=== PATIENT | male | born 1925 | race Caucasian/White ===

== ENCOUNTER 2016-10-05 09:00 | Emergency (ER) | payer MEDICARE ==
[~2016-10-05] VITALS: Ht 172.7 cm; Wt 63.5 kg
[~2016-10-05 09:00] MED LIST: ASPI-482 PO; ASPI81TA2 PO; ATOR20TA58 PO; DABI150C PO; FLUD0.1T PO; FURO-69 PO; HYDR-2666 PO; METO100T2 PO; METO25TA2 PO; MULT-658 PO; NABU750T PO; NYST1000 PO; OXYC-323 PO; POLY17PO5 PO; SIMV40TA PO; dramamine
--- NOTE | 2016-10-05 09:37 | PHYS DOC ---
Past Medical History Past Medical History: CAD, CHF, CVA, Hypertension, Pneumonia, Other Additional Past Medical Histor: CHRONIC PNEUMONIA,DYSPHAGIA Past Surgical History: Coronary Bypass Surgery, Pacemaker, Tonsillectomy, Other Additional Past Surgical Histo: heart valve transplant, cataract, karo knees Alcohol Use: Rarely Drug Use: None Adult General Chief Complaint Chief Complaint: COUGH HPI HPI Patient is a 89 year old male presents emergency department from a nursing facility. Patient was sent over in regards to the cough that he's been having. Patient denies any fever, denies productive cough. He denies any shortness of air. Family member at bedside states that they are unsure why he was sent over here they had not received a call. She appears to be in no distress. Review of Systems Review of Systems Constitutional: Denies fever or chills [] Eyes: Denies change in visual acuity, redness, or eye pain [] HENT: Denies nasal congestion or sore throat [] Respiratory: cough denies shortness of breath [] Cardiovascular: No additional information not addressed in HPI [] GI: Denies abdominal pain, nausea, vomiting, bloody stools or diarrhea [] : Denies dysuria or hematuria [] Musculoskeletal: Denies back pain or joint pain [] Integument: Denies rash or skin lesions [] Neurologic: Denies headache, focal weakness or sensory changes [] Allergies Allergies Allergies Coded Allergies Type Severity Reaction Last Updated Verified No Known Allergies Allergy Unknown 08/26/16 No Physical Exam Physical Exam Constitutional: Well developed, well nourished, no acute distress, non-toxic appearance. [] HENT: Normocephalic, atraumatic, bilateral external ears normal, oropharynx moist, no oral exudates, nose normal. [] Eyes: PERRLA, EOMI, conjunctiva normal, no discharge. [] Neck: Normal range of motion, no tenderness, supple, no stridor. [] Cardiovascular:Heart rate regular rhythm, no murmur [] Lungs & Thorax: Bilateral breath sounds clear to auscultation [] Skin: Warm, dry, no erythema, no rash. [] Back: No tenderness Extremities: No tenderness, no cyanosis, no clubbing, ROM intact, no edema. [] Neurologic: Alert and oriented X 3, normal motor function, normal sensory function, no focal deficits noted. [] Psychologic: Affect normal, judgement normal, mood normal. [] Current Patient Data Vital Signs Vital Signs Date Time Temp Pulse Resp B/P Pulse Ox O2 Delivery O2 Flow Rate FiO2 10/05/16 09:00 98.5 60 22 119/69 22 Room Air 98.5 Lab Values Laboratory Tests Test 10/05/16 09:27 10/05/16 09:42 Sodium Level 142mmol/L (136-145) Potassium Level 4.8mmol/L (3.5-5.1) Chloride Level 104mmol/L (98-107) Carbon Dioxide Level 29mmol/L (21-32) Anion Gap 9 (6-14) Blood Urea Nitrogen 16mg/dL (8-26) Creatinine 0.9mg/dL (0.7-1.3) Estimated GFR (Cockcroft-Gault) 79.5 BUN/Creatinine Ratio 18 (6-20) Glucose Level 99mg/dL (70-99) Calcium Level 9.3mg/dL (8.5-10.1) Total Bilirubin 0.5mg/dL (0.2-1.0) Aspartate Amino Transferase (AST) 27U/L (15-37) Alanine Aminotransferase (ALT) 27U/L (16-63) Alkaline Phosphatase 127U/L (46-116) H Total Protein 6.7g/dL (6.4-8.2) Albumin 3.5g/dL (3.4-5.0) Albumin/Globulin Ratio 1.1 (1.0-1.7) White Blood Count 6.2x10^3/uL (4.0-11.0) Red Blood Count 4.03x10^6/uL (4.30-5.70) L Hemoglobin 12.2g/dL (13.0-17.5) L Hematocrit 36.8% (39.0-53.0) L Mean Corpuscular Volume 91fL (79-100) Mean Corpuscular Hemoglobin 30pg (25-35) Mean Corpuscular Hemoglobin Concent 33g/dL (31-37) Red Cell Distribution Width 15.6% (11.5-14.5) H Platelet Count 211x10^3/uL (140-400) Neutrophils (%) (Auto) 72% (31-73) Lymphocytes (%) (Auto) 13% (24-48) L Monocytes (%) (Auto) 9% (0-9) Eosinophils (%) (Auto) 5% (0-3) H Basophils (%) (Auto) 1% (0-3) Neutrophils # (Auto) 4.5x10^3uL (1.8-7.7) Lymphocytes # (Auto) 0.8x10^3/uL (1.0-4.8) L Monocytes # (Auto) 0.6x10^3/uL (0.0-1.1) Eosinophils # (Auto) 0.3x10^3/uL (0.0-0.7) Basophils # (Auto) 0.1x10^3/uL (0.0-0.2) Laboratory Tests 10/05/16 09:42 Laboratory Tests 10/05/16 09:27 EKG EKG [] Radiology/Procedures Radiology/Procedures [][facility] [address] [place] [address] IMAGING REPORT Signed PATIENT: KEDAR VASQUEZ ACCOUNT: [id number] : 1925 LOCATION: ER AGE: 89 SEX: M EXAM STATUS: PRE ER ORD. PHYSICIAN: BECKY REEVES NP REASON: cough congestion PROCEDURE: PORTABLE CHEST 1V Indication cough. A single view of the chest was obtained. Comparison is made to an examination 15 days earlier. Some linear atelectasis is seen in the left mid and lower lung similar to the previous exam. There are probable chronic background changes of fibrosis. A definite consolidated pneumonia is not seen. A significant change relative to the prior study is not apparent. There is no pleural fluid or pneumothorax. Postoperative changes are noted. Somewhat tortuous thoracic aorta is noted. There are degenerative changes about the left shoulder. Postoperative changes in the left humerus are noted. IMPRESSION: Linear atelectasis in the left lung similar to the previous exam. 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 No consolidated pneumonia is seen. No significant change DICTATED and SIGNED BY: NICOLE ARIZMENDI MD DATE: 10/05/16 [id number] CC: BECKY REEVES MICA INSPECTOR; MICHEAL LUCAS MD ~ Course & Med Decision Making Course & Med Decision Making Pertinent Labs and Imaging studies reviewed. (See chart for details) Chest x-ray had no changes from previous x-rays. CBC and chemistries with no abnormalities noted. Provided results to patient and family. Patient will be discharged back to the nursing facility. Spoke with Dr. Lucas in regards to chest x-ray and lab results. Patient does have a cough although it is nonproductive. O2 sats are within normal limits. No respiratory distress noted. Signs symptoms to return back to emergency department as been provided. [] Dragon Disclaimer Dragon Disclaimer This electronic medical record was generated, in whole or in part, using a voice recognition dictation system. Departure Departure Impression: Primary Impression: URI (upper respiratory infection) Disposition: HOME, SELF-CARE Condition: STABLE Referrals: MICHEAL LUCAS MD (PCP) Patient Instructions: Upper Respiratory Infection, Adult, [id number] Additional Instructions: Activity as tolerated. Continue your medications as prescribed. Follow-up to primary care physician within the next 2-3 days. Return back to emergency prior signs symptoms of become worse. BECKY REEVES NP Oct 05, 2016 09:37
[2016-10-05 09:57] LABS: CALCIUM 9.3 mg/dL (8.5-10.1); CREATININE 0.9 mg/dL (0.7-1.3); GFR 79.5; POTASSIUM 4.8 mmol/L (3.5-5.1)
[2016-10-05 10:01] LABS: BASO # 0.1 x10^3/uL (0.0-0.2); BASO % 1 % (0-3); EOS % 5 % (0-3); HEMATOCRIT 36.8 % (39.0-53.0); HEMOGLOBIN 12.2 g/dL (13.0-17.5); LYMPH # 0.8 x10^3/uL (1.0-4.8); LYMPH % 13 % (24-48); MEAN CORPUSCULAR HEMOGLOBIN 30 pg (25-35); MEAN CORPUSCULAR HGB CONC 33 g/dL (31-37); MEAN CORPUSCULAR VOLUME 91 fL (79-100); MONO % 9 % (0-9); NEUT % 72 % (31-73); PLATELET COUNT 211 x10^3/uL (140-400); RED BLOOD COUNT 4.03 x10^6/uL (4.30-5.70); RED CELL DISTRIBUTION WIDTH 15.6 % (11.5-14.5); WHITE BLOOD COUNT 6.2 x10^3/uL (4.0-11.0)
[2016-10-05 10:02] LABS: ALBUMIN 3.5 g/dL (3.4-5.0); ALBUMIN/GLOBULIN RATIO 1.1 (1.0-1.7); TOTAL BILIRUBIN 0.5 mg/dL (0.2-1.0); TOTAL PROTEIN 6.7 g/dL (6.4-8.2)
[2016-10-05 11:06] VITALS: BP 115/76
== END 2016-10-05 11:21 | disposition home or self-care (01) ==
LOC: ER 09:00
DX: J06.9 Acute upper respiratory infection, unspecified (principal); I25.10 Atherosclerotic heart disease of native coronary artery without angina pectoris; I11.0 Hypertensive heart disease with heart failure; I50.9 Heart failure, unspecified; Z86.73 Personal history of transient ischemic attack (TIA), and cerebral infarction without residual deficits; Z87.01 Personal history of pneumonia (recurrent); Z95.0 Presence of cardiac pacemaker; Z95.1 Presence of aortocoronary bypass graft; Z95.2 Presence of prosthetic heart valve
CPT/HCPCS: 36415; 71010; 80053; 85027; 87040; 99285-25

== ENCOUNTER 2017-01-21 11:01 | Inpatient (IN) | payer MEDICARE ==
[~2017-01-21] VITALS: Ht 172.7 cm; Wt 60.4 kg
[~2017-01-21 11:01] MED LIST changes: +ASPI-630 PO; -ASPI81TA2 PO; -HYDR-2666 PO; +HYDR-2758 PO; -NYST1000 PO; +NYST100054 PO; +POLY17PO29 PO; -POLY17PO5 PO
--- NOTE | 2017-01-21 11:36 | PHYS DOC ---
Past Medical History Past Medical History: CAD, CHF, CVA, Hypertension, Pneumonia, Other Additional Past Medical Histor: CHRONIC PNEUMONIA,DYSPHAGIA Past Surgical History: Coronary Bypass Surgery, Pacemaker, Tonsillectomy, Other Additional Past Surgical Histo: heart valve transplant, cataract, karo knees Alcohol Use: Rarely Drug Use: None Adult General Chief Complaint Chief Complaint: TONGUE SWELLING/INJURY [facility] HPI Patient is a 89 year old male with a tongue lesion and dysphagia who presents by EMS from nursing facility for increased difficulty swallowing and breathing from baseline. States he feels a catch in his throat when he tries to swallow that makes it difficult to breath. Has no resting dyspnea. He denies chest pain , voice changes, sore throat, numbness, tingling, weakness, headache, vision changes. Review of Systems Review of Systems Constitutional: Denies fever or chills [] Eyes: Denies change in visual acuity, redness, or eye pain [] HENT: Denies nasal congestion or sore throat [] Respiratory: Denies cough or shortness of breath [] Cardiovascular: No additional information not addressed in HPI [] GI: Denies abdominal pain, nausea, vomiting, bloody stools or diarrhea [] : Denies dysuria or hematuria [] Musculoskeletal: Denies back pain or joint pain [] Integument: Denies rash or skin lesions [] Neurologic: Denies headache, focal weakness or sensory changes [] Endocrine: Denies polyuria or polydipsia [] Allergies Allergies Allergies Coded Allergies Type Severity Reaction Last Updated Verified No Known Allergies Allergy Unknown 08/26/16 No Physical Exam Physical Exam Constitutional: Well developed, well nourished, no acute distress, non-toxic appearance. [] HENT: Normocephalic, atraumatic, bilateral external ears normal, oropharynx moist, no oral exudates, nose normal. Fungating lesion on right side of tongue that is mostly circular and raises, does not scrape off, is tender. No muffled voice. [] Eyes: PERRLA, EOMI. [] Neck: Normal range of motion, no tenderness, supple, no stridor. [] Cardiovascular:Heart rate regular rhythm [] Lungs & Thorax: Bilateral breath sounds clear to auscultation [] Abdomen: Bowel sounds normal, soft, no tenderness. [] Skin: Warm, dry, no erythema, no rash. [] Back: Normal ROM. [] Extremities: No tenderness, ROM intact, no edema. [] Neurologic: Alert and oriented X 3, normal motor function, normal sensory function, no focal deficits noted. [] Psychologic: Affect normal, judgement normal, mood normal. [] Current Patient Data Vital Signs Vital Signs Date Time Temp Pulse Resp B/P (MAP) Pulse Ox O2 Delivery O2 Flow Rate FiO2 01/21/17 11:06 98.2 80 16 115/77 (90) 95 Room Air 98.2 Course & Med Decision Making Course & Med Decision Making Pertinent Labs and Imaging studies reviewed. (See chart for details) Bedside swallow eval was failed. Discussed my concern with Dr. Yost, who recommends admission. Dragon Disclaimer Dragon Disclaimer This electronic medical record was generated, in whole or in part, using a voice recognition dictation system. Departure Departure Impression: Primary Impression: Dysphagia Disposition: ADMITTED INPATIENT Condition: STABLE Referrals: MICHEAL YOST MD (PCP) Problem Qualifiers Primary Impression: Dysphagia Dysphagia type: unspecified Qualified Codes: R13.10 - Dysphagia, unspecified Everett ROBERTSON MD Jan 21, 2017 11:36
[2017-01-21 12:14] LABS: BASO # 0.1 x10^3/uL (0.0-0.2); BASO % 1 % (0-3); EOS % 3 % (0-3); HEMATOCRIT 41.1 % (39.0-53.0); HEMOGLOBIN 13.5 g/dL (13.0-17.5); LYMPH % 12 % (24-48); MEAN CORPUSCULAR HEMOGLOBIN 30 pg (25-35); MEAN CORPUSCULAR HGB CONC 33 g/dL (31-37); MEAN CORPUSCULAR VOLUME 90 fL (79-100); MONO % 8 % (0-9); NEUT % 77 % (31-73); PLATELET COUNT 194 x10^3/uL (140-400); RED BLOOD COUNT 4.56 x10^6/uL (4.30-5.70); WHITE BLOOD COUNT 8.9 x10^3/uL (4.0-11.0)
[2017-01-21 12:25] LABS: CALCIUM 10.1 mg/dL (8.5-10.1); CREATININE 1.1 mg/dL (0.7-1.3); POTASSIUM 4.6 mmol/L (3.5-5.1)
[2017-01-21 14:15] VITALS: BP 101/72
[2017-01-21 19:26] VITALS: BP 109/75
[2017-01-21] MEDS: IV DEXTROSE 5% - 0.9 % NACL 1,000 ML IV SCH (20:43)
[2017-01-21 23:10] VITALS: BP 112/79
[2017-01-22 07:00] VITALS: BP 96/62
--- NOTE | 2017-01-22 08:04 | RAD ---
Indication pneumonia. Difficulty breathing. A single view of the chest was obtained. Comparison is made to an examination February 02, 2017. 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 In this regard the appearance of the chest is similar. The heart and pulmonary vessels are unchanged. A focal consolidated pneumonia is not seen. Significant pleural fluid is not seen. There is no pneumothorax. Postoperative changes and a bipolar cardiac pacing device are noted. Kyphoplasty changes are noted associated with a lumbar vertebral body segment. Chronic musculoskeletal changes about the shoulders are noted. IMPRESSION: Chronic changes. No acute or focal process. No significant change
[2017-01-22] MEDS: IV DEXTROSE 5% - 0.9 % NACL 1,000 ML IV SCH (08:56)
[2017-01-22 11:00] VITALS: BP 101/72
--- NOTE | 2017-01-22 23:30 | SSS ---
ADMIT DATE: 01/21/2017 HISTORY OF PRESENT ILLNESS: This is an 89-year-old white male who was brought into the Emergency Room by his son because of difficulty swallowing. 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 Even though he was advised and he had agreed in November, he thought he would wait until December. Now, he is having trouble swallowing and thus was brought in. He has underlying atrial flutter. He has a permanent pacemaker. He has had coronary artery disease and ejection fraction of 40%. He had undergone myocardial perfusion imaging study in 04/2016, which was normal. He has had some orthostatic hypotension, but he has had no symptoms recently. He has a permanent pacemaker. He has undergone open heart surgery and a valve replacement. The valve was functioning well since 05/06/2016. PHYSICAL EXAMINATION: GENERAL: He is afebrile. His speech was certainly affected by the lesion on his tongue. VITAL SIGNS: The heart rate was 70 per minute and regular. The blood pressure is 110/80. LUNGS: Clear. HEART: Heart sounds are normal. There is grade 1/6 systolic murmur heard at the base. There is no S3 or S4. ABDOMEN: Soft. EXTREMITIES: There is no edema of the legs. On his tongue, there is a growth on the anterior surface, it seemed to go posteriorly. He had great difficulty in talking and he said he had great difficulty in swallowing. There is no lymphadenopathy. IMPRESSION: 1. Dysphagia. 2. Precancerous lesion at the tongue that is enlarging in size and extent. 3. Prosthetic aortic valve. 4. Atrial flutter. He was hospitalized. He was kept n.p.o. IV fluids were started. LABORATORY DATA: The hemoglobin was 13.5. The sodium was 141, potassium 4.6, glucose is 106, BUN 24, creatinine 1.1. I saw him the next day and on the same day. His chest x-ray showed no infiltrates. His ENT physician is at [facility]. I spoke to him. He wanted him transfer to [facility] and he would see him. He will see whether the lesion in the tongue is still resectable or not. He will be kept n.p.o. and given procalamine. If it is not resectable, one would need to consider the PEG tube. FINAL DIAGNOSES: 1. Precancerous lesion of the tongue, enlarging in size and causing symptoms. 2. Dysphasia and dysphagia. 3. Prosthetic aortic valve. 4. Atrial flutter. He will be discharged and his son will take him to [facility]. There, he will be evaluated by Dr. Cartwright. His oral medications are not going to be resumed. There, he will be placed on subcutaneous Lovenox. Dr. Cartwright also wanted him to get a CT of the chest and CT of the neck and head. MICHEAL YOST MD DR: EM/joceline JOB#: [id number] / [id number]
== END 2017-01-22 14:25 | disposition home or self-care (01) | DRG 158 ==
LOC: ER 11:01 → 6 SOUTH 12:10
PROVIDERS: ADMIT Specialist; ATTEND Specialist
DX: K14.8 Other diseases of tongue (principal); I48.92 Unspecified atrial flutter; I95.1 Orthostatic hypotension; I11.0 Hypertensive heart disease with heart failure; I50.9 Heart failure, unspecified; I25.10 Atherosclerotic heart disease of native coronary artery without angina pectoris; R47.02 Dysphasia; Z85.810 Personal history of malignant neoplasm of tongue; Z95.2 Presence of prosthetic heart valve; Z87.01 Personal history of pneumonia (recurrent); Z95.0 Presence of cardiac pacemaker; Z86.73 Personal history of transient ischemic attack (TIA), and cerebral infarction without residual deficits; Z98.49 Cataract extraction status, unspecified eye; Z79.899 Other long term (current) drug therapy; Z79.1 Long term (current) use of non-steroidal anti-inflammatories (NSAID); Z79.2 Long term (current) use of antibiotics
CPT/HCPCS: 36415; 71010; 80048; 85027; J7042; 99285-25